=== PATIENT | male | born 1950 | race African-American/Black ===

== ENCOUNTER 2018-01-04 15:32 | Day surgery (SDC) | payer OTHER, MEDICARE ==
[2018-01-04] VITALS (7 sets, daily range): BP systolic 141–153; BP diastolic 75–90
[~2018-01-04] VITALS: Ht 182.9 cm; Wt 122.5 kg
[2018-01-04] MEDS ORDERED: LORazepam 0.5 MG tablet PO PRN (16:00)
[2018-01-04] MEDS ORDERED: diphenhydrAMINE 25mg capsule PO PRN (16:00)
[2018-01-04] MEDS ORDERED: ceFAZolin/D5W- 1GM premix 50 ML IV SCH (16:00)
[2018-01-04] MEDS ORDERED: normal saline 1000ml 1,000 ML IV SCH (16:00)
[2018-01-04] MEDS ORDERED: INSU100C4 SQ (17:37)
[2018-01-04] MEDS ORDERED: LOSA100T15 PO (17:37)
[2018-01-04] MEDS ORDERED: OMEP20TA5 PO (17:37)
[2018-01-04] MEDS ORDERED: POTA10TA10 PO (17:37)
[2018-01-04] MEDS ORDERED: DORZ10DR18 EACHEYE (17:37)
[2018-01-04] MEDS ORDERED: FURO-150 PO (17:37)
[2018-01-04] MEDS ORDERED: AMLO5TAB PO (17:37)
[2018-01-04] MEDS ORDERED: FLUOROMETHOLONE EACHEYE (17:37)
[2018-01-04] MEDS ORDERED: LANTUS SQ (17:37)
[2018-01-04] MEDS ORDERED: MELO-102 PO (17:37)
[2018-01-04] MEDS ORDERED: FLO0.4C PO (17:37)
[2018-01-04] MEDS ORDERED: ASPI-1265 PO (17:37)
[2018-01-04] MEDS ORDERED: FERGLU300T PO (17:37)
[2018-01-04] MEDS ORDERED: fentaNYL/PF 50MCG/1 ML 2ML syringe ONE (18:00)
[2018-01-04] MEDS ORDERED: midazolam 2 mg/2 ml injection ONE (18:00)
[2018-01-04] MEDS ORDERED: ceFAZolin 1GM/D5W- ADD-VANTAGE 50 ML IV ONE (18:00)
[2018-01-04] MEDS ORDERED: lidocaine 1%/epinephrine 1:100,000 injection 50ml vial ONE (18:01)
[2018-01-04] MEDS ORDERED: ceFAZolin 1000mg inj ONE (18:01)
[2018-01-04] MEDS ORDERED: HYDROcodone/acetaminophen 5mg/325mg tablet PO PRN (19:05)
[2018-01-04] MEDS ORDERED: HYDROcodone/acetaminophen 10/325mg tab PO PRN (19:05)
== END 2018-01-04 20:50 | disposition home or self-care (01) ==
LOC: SSTAY O 15:32
PROVIDERS: ATTEND Internal Medicine Interventional Cardiology
DX: I49.5 Sick sinus syndrome (principal); I44.1 Atrioventricular block, second degree; E11.9 Type 2 diabetes mellitus without complications; I10 Essential (primary) hypertension; E78.5 Hyperlipidemia, unspecified; K21.9 Gastro-esophageal reflux disease without esophagitis; N40.0 Benign prostatic hyperplasia without lower urinary tract symptoms; F10.10 Alcohol abuse, uncomplicated; Z87.891 Personal history of nicotine dependence; Z96.651 Presence of right artificial knee joint; Z98.41 Cataract extraction status, right eye; Z79.4 Long term (current) use of insulin; Z79.82 Long term (current) use of aspirin; Z79.899 Other long term (current) drug therapy; Z98.890 Other specified postprocedural states
CPT/HCPCS: 33208; 82948; 93005; 99152; 99153; C1785; C1898; J0690; J2250; J3010; J3490; J7030; Q0163; A4565; A4620